=== PATIENT | female | born 1970 | race Two or more races ===

== ENCOUNTER 2025-04-03 21:29 | Emergency (ER) | payer OTHER ==
[~2025-04-03] VITALS: Ht 154.9 cm; Wt 63.0 kg
--- NOTE | 2025-04-03 21:52 | ED.PDOC ---
SOB-HPI HPI Comments 55 year old female with a Hx of Hyperlipidemia, and Covid-19was BIBA to the ED for the c/c of SOB w/ associated cough, and wheezing. EMS states pt was Dx with Covid-19 Last week and has since developed symptoms 2x days ago w/ no alleviating factors. EMS states that pt administered 6 puffs of her Albuterol treatment and noted of no alleviating factors. EMS notes they all administered an extra 2 albuterol treatments as well as 6L O2, and pt is noted to be SAT on 99% RA at this time. No other associated symptoms, modifiers, recent injuries or sick contacts present at this time. 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 History Family History Family History: Unobtainable Social History Smoker: Non-Smoker Alcohol: Denies ETOH Use Drugs: Denies Drug Use Lives In: Home Constitutional: denies: chills, diaphoresis, fatigue, fever, malaise, sweats, weakness, others EENTM: denies: blurred vision, double vision, ear bleeding, ear discharge, ear drainage, ear pain, ear ringing, eye pain, eye redness, hearing loss, mouth pain , mouth swelling, nasal discharge, nose bleeding, nose congestion, nose pain, photophobia, tearing, throat pain, throat swelling, voice changes, others Respiratory: reports: SOB at rest, shortness of breath; denies: cough, hemoptysis, orthopnea, SOB with excertion, stridor, wheezing, others Cardiovascular: denies: chest pain, dizzy spells, diaphoresis, Dyspnea on exertion, edema, irregular heart beat, left arm pain, lightheadedness, palpitations, PND, syncope, others Gastrointestinal: denies: abdomen distended, abdominal pain, blood streaked bowels, constipated, diarrhea, dysphagia, difficulty swallowing, hematemesis, melena, nausea, poor appetite, poor fluid intake, rectal bleeding, rectal pain, vomiting, others Genitourinary: denies: abnormal vagina bleeding, burning, dyspareunia, dysuria, flank pain, frequency, hematuria, incontinence, pain, , vagina discharge, urgency, others Neurological: denies: dizziness, fainting, headache, left sided numbness, left sided weakness, numbness, paresthesia, pre-existing deficit, right sided numbness, right sided weakness, seizure, speech problems, tingling, tremors, weakness, others Musculoskeletal: denies: back pain, gout, joint pain, joint swelling, muscle pain, muscle stiffness, neck pain, others Integumetry: denies: bruises, change in color, change in hair/nails, dryness, laceration, lesions, lumps, rash, wounds, others Allergic/Immunocompromised: denies: Difficulty Healing, Frequent Infections, Hives, Itching, others Hematologic/Lymphatic: denies: anemia, blood clots, easy bleeding, easy bruising, swollen glands, others Endocrine: denies: excessive hunger, excessive sweating, excessive thirst, excessive urination, flushing, intolerance to cold, intolerance to heat, unexplained weight gain, unexplained weight loss, others Psychiatric: denies: anxiety, bipolar disorder, depression, hopeless, panic disorder, schizophrenia, sleepless, suicidal, others All Other Systems: Reviewed and Negative Physical Exam General Appearance: Cachectic, Normal HEENT: Normal ENT Inspection, Pharynx Normal, TMs Normal Neck: Full Range of Motion, Non-Tender, Normal, Normal Inspection Respiratory: Chest Non-Tender, Lungs Clear, Normal Breath Sounds, Respiratory Distress, Wheezing Cardiovascular: No Edema, No JVD, No Murmur, No Gallop, Normal Peripheral Pulses, Regular Rate/Rhythm Breast Exam: Deferred Gastrointestinal: Non Tender, No Pulsatile Mass, Normal Bowel Sounds, Soft Genitalia: Deferred Pelvic: Deferred Rectal: Deferred Extremities: No calf tenderness, Normal capillary refill, Normal inspection, Normal range of motion, Non-tender, No pedal edema Musculoskeletal : Apperance: Normal Neurologic: Alert, No Motor Deficits, Normal Affect, Normal Mood, No Sensory Deficits Cerebellar Function: Normal Reflexes: Normal Skin: Dry, Normal Color, Warm Lymphatic: No Adenopathy Was a procedure done? Was a procedure done?: No Differential Dx Differential Diagnosis: Anxiety, Asthma, Bronchitis, COPD, Dysrhythmia, Hypertension, Panic Attack, Pneumonia, Pneumothorax, Pulmonary Embolism, Respiratory Distress, Sinusitis, Pharyngitis, URI X-Ray, Labs, Meds, VS Vital Signs Date Time Temp Pulse Resp B/P (MAP) Pulse Ox O2 Delivery O2 Flow Rate FiO2 04/04/25 03:14 92 15 96 Room Air* 0 21 04/04/25 03:14 98.4 92 15 121/64 (83) 96 98.4 04/04/25 01:25 102 16 100 04/04/25 01:17 96 Room Air 0.0 04/04/25 01:17 96 Room Air* 0 21 04/04/25 01:17 96 16 96 04/04/25 00:31 91 18 96 Room Air* 0 21 04/04/25 00:31 98.3 91 18 122/72 (89) 96 98.3 04/03/25 22:30 97.9 115 18 152/92 95 0.0 97.9 04/03/25 22:14 115 18 100 04/03/25 22:08 110 18 95 04/03/25 22:08 95 Room Air* 0 21 04/03/25 22:08 95 Room Air 0.0 04/03/25 21:39 135 04/03/25 21:29 97.9 120 22 152/92 99 97.9 Lab Test 04/03/25 23:06 04/03/25 21:54 04/03/25 09:55 Range/Units Troponin I High Sensitivity 7 8 </=34 ng/L White Blood Count 9.3 4.4-10.8 10^3/uL Red Blood Count 4.89 4.0-5.20 10^6/uL Hemoglobin 14.2 12.2-16.2 g/dL Hematocrit 42.4 36.0-46.0 % Mean Corpuscular Volume 86.7 80.0-100.0 fL Mean Corpuscular Hemoglobin 29.0 28.0-32.0 pg Mean Corpuscular Hemoglobin Concent 33.4 32.0-36.0 g/dL Red Cell Distribution Width 13.8 11.8-14.3 % Platelet Count 267 140-450 10^3/uL Mean Platelet Volume 9.5 6.9-10.8 fL Neutrophils (%) (Auto) 53.6 37.0-80.0 % Lymphocytes (%) (Auto) 28.1 10.0-50.0 % Monocytes (%) (Auto) 9.7 0.0-12.0 % Eosinophils (%) (Auto) 8.0 H 0.0-7.0 % Basophils (%) (Auto) 0.6 0.0-2.0 % Neutrophils # (Auto) 5.0 1.6-8.6 10 ^3/uL Lymphocytes # (Auto) 2.6 0.4-5.4 10 ^3/uL Monocytes # (Auto) 0.9 0-1.3 10 ^3/uL Eosinophils # (Auto) 0.7 0-0.8 10 ^3/uL Basophils # (Auto) 0.1 0-0.2 10 ^3/uL Nucleated Red Blood Cells 0.1 % Sodium Level 142 136-145 mmol/L Potassium Level 3.1 L 3.5-5.1 mmol/L Chloride Level 105 98-107 mmol/L Carbon Dioxide Level 25 20-31 mmol/L Anion Gap 12 5-15 Blood Urea Nitrogen 8 L 9-23 mg/dL Creatinine 0.78 0.550-1.02 mg/dL Glomerular Filtration Rate Calc 89 >90 mL/min BUN/Creatinine Ratio 10.3 10.0-20.0 Serum Glucose 185 H 74-106 mg/dL Calcium Level 10.2 8.7-10.4 mg/dL Magnesium Level 2.3 1.6-2.6 mg/dL Total Bilirubin 0.6 0.2-1.0 mg/dL Aspartate Amino Transferase (AST) 22 13-40 U/L Alanine Aminotransferase (ALT) 33 7-40 U/L Alkaline Phosphatase 126 H 46-116 U/L B-Type Natriuretic Peptide 2.81 0-100 pg/mL Total Protein 7.5 5.7-8.2 g/dL Albumin 5.0 H 3.2-4.8 g/dL Blood Gas Specimen Type Venous Blood Gas Sample Site Vbg - n/a Blood Gas Patient Temperature 37.0 Arterial Blood Date Drawn [id number] Pb Test N/a Venous Blood pH 7.416 7.320-7.430 Venous Blood pCO2 at Patient Temp 38.1 38.0-54.0 mmHg Venous Blood pO2 at Patient Temp 43.8 23.0-48.0 mmHg Venous Blood HCO3 23.9 22.0-29.0 mmol/L Venous Bld O2 Saturation (Measured) 80.5 60.0-85.0 % Venous Blood Base Excess -0.3 -2.0-3.0 mmol/L Venous Blood Total Hemoglobin 14.8 12.0-16.0 g/dL Venous Blood Oxyhemoglobin 79.4 H 0.0-79.0 % Venous Blood Carboxyhemoglobin 0.6 0.5-1.5 % Venous Blood Methemoglobin 0.8 0.0-1.5 % Blood Gas Modality Room air FiO2 % 21.0 Current Medications Medications (Trade) Dose Ordered Sig/Genoveva Route Start Time Stop Time Status Last Admin Prednisone 40 mg ONCE ONCE PO 04/03/25 21:45 04/03/25 21:46 DC 04/04/25 00:31 Potassium Chloride (Klor-Con Tablet) 40 meq ONCE ONCE PO 04/03/25 22:45 04/03/25 22:46 DC 04/04/25 00:31 Magnesium Sulfate/ Dextrose 100 ml @ 100 mls/hr Q1H IV 04/04/25 01:00 04/04/25 02:59 DC 04/04/25 04:31 Albuterol (Ventolin Medneb) 5 mg ONCE ONCE NEB 04/04/25 01:00 04/04/25 01:01 DC 04/04/25 01:17 Ipratropium [place] (Atrovent Medneb) 0.5 mg ONCE ONCE NEB 04/04/25 01:00 04/04/25 01:01 DC 04/04/25 01:17 PATIENT: BART BONILLA ACCT: [id number] UNIT: [id number] : 1970 LOC: ER ROOM / BED: / AGE / SEX: 55 / F ADM STATUS: REG ER SERVICE 39 ORDERING PHYSICIAN: NICOLAS ALCANTAR MD PROCEDURE(s): CXRP - CHEST PORTABLE REASON: SOB ORDER NUMBER(s): [id number], ACCESSION NUMBER(s): [id number] CHEST RADIOGRAPH Indication: SOB Technique: Single frontal view of the chest was obtained COMPARISON: None FINDINGS: Lines and Tubes: None. Bilateral breast prostheses. Lungs: Clear Pleura: No effusion. No pneumothorax. Cardiomediastinal contours: Unremarkable Bones: Unremarkable IMPRESSION: 1. No acute disease. Time of 1ST Reevaluation: 22:17 Reevaluation 1ST: Unchanged Patient Education/Counseling: Diagnosis, Treatment, Need For Follow Up Family Education/Counseling: No Family Present SEPSIS Sepsis Screen Date sepsis recognized/suspect: Apr 03, 2025 Time Sepsis recognized/suspect: 2128 Recent Procedure: No On Antibiotic Therapy: No Respiratory Rate >20: No Heart Rate >90: No Temp<36 C (96.8 F) or >38.3 C: No SBP <90 or MAP <65 mmHG: No New Acute Mental Status Change: No Is the patient on CPAP, BIPAP,: No Physician Orders Electrocardigram (04/03/25 21:40) Electrocardigram (04/04/25 00:40) Chest Portable (04/03/25 21:40) Venous Blood Gas (04/03/25 21:40) Levalbuterol Hcl (Xopenex Medneb) (04/04/25 00:00) Vital Signs Date Time Temp Pulse Resp B/P (MAP) Pulse Ox O2 Delivery O2 Flow Rate FiO2 04/04/25 03:14 92 15 96 Room Air* 0 04/04/25 03:14 98.4 92 15 121/64 (83) 96 98.4 04/04/25 01:25 102 16 100 04/04/25 01:17 96 Room Air 0.0 04/04/25 01:17 96 Room Air* 0 04/04/25 01:17 96 16 96 04/04/25 00:31 91 18 96 Room Air* 0 04/04/25 00:31 98.3 91 18 122/72 (89) 96 98.3 04/03/25 22:30 97.9 115 18 152/92 95 0.0 97.9 04/03/25 22:14 115 18 100 04/03/25 22:08 110 18 95 04/03/25 22:08 95 Room Air* 0 21 04/03/25 22:08 95 Room Air 0.0 04/03/25 21:39 135 04/03/25 21:29 97.9 120 22 152/92 99 97.9 Laboratory Tests Test 04/03/25 21:54 White Blood Count 9.3 10^3/uL (4.4-10.8) Medications Medications Dose Ordered Sig/Genoveva Route Start Time Stop Time Status Last Admin Dose Admin Albuterol 5 mg ONCE ONCE NEB 04/04/25 01:00 04/04/25 01:01 DC 04/04/25 01:17 Ipratropium [place] 0.5 mg ONCE ONCE NEB 04/04/25 01:00 04/04/25 01:01 DC 04/04/25 01:17 Levalbuterol HCl 1.25 mg STK-MED ONCE .ROUTE 04/03/25 22:03 04/03/25 22:01 DC 04/03/25 22:07 Magnesium Sulfate/ Dextrose 100 ml @ 100 mls/hr Q1H IV 04/04/25 01:00 04/04/25 02:59 DC 04/04/25 04:31 Potassium Chloride 40 meq ONCE ONCE PO 04/03/25 22:45 04/03/25 22:46 DC 04/04/25 00:31 Prednisone 40 mg ONCE ONCE PO 04/03/25 21:45 04/03/25 21:46 DC 04/04/25 00:31 Departure 1 Departure Time of Disposition: 01:00 Impression: Primary Impression: Bronchospasm Additional Impression: URI (upper respiratory infection) Disposition: 01 HOME / SELF CARE / HOMELESS Condition: Stable e-Prescriptions Prednisone (Prednisone) 20 Mg Tab 20 MG PO BID for 5 Days, #10 TAB Prov: NICOLAS ALCANTAR MD 04/03/25 Albuterol Sulfate (Albuterol Sulfate Hfa) 108 Mcg/Act Aer 108 MCG IN Q6HP PRN, #1 AER Prov: NICOLAS ALCANTAR MD 04/03/25 Azithromycin (Azithromycin) 500 Mg Tab 1 TAB PO DAILY for 5 Days, #5 TAB Prov: NICOLAS ALCANTAR MD 04/03/25 Discharged With: Self Critical Care Note Critical Care Time?: No Stability Stability form required: No Heart Score Heart Score: Heart Score Response (Comments) Value History N/A 0 EKG N/A 0 Age N/A 0 Risk Factors N/A 0 Troponin N/A 0 Total 0 I personally scribed for NICOLAS ALCANTAR MD ([email or web address]) on 04/03/25 at 21:52. Electronically submitted by Rashid Gillespie ([email or web address]). I personally scribed for NICOLAS ALCANTAR MD ([email or web address]) on 04/03/25 at 22:34. Electronically submitted by Rashid Gillespie ([email or web address]). NICOLAS ALCANTAR MD Apr 03, 2025 21:52
[2025-04-03] MEDS: LEVALBUTEROL HCL 1.25 MG/3 ML NEB ONE (22:07)
[2025-04-03 22:08] VITALS: PULSE 110; RESP 18; O2SAT 95
[2025-04-03 22:11] LABS: Hematocrit 42.4 % (36.0-46.0); Hemoglobin 14.2 g/dL (12.2-16.2); Mean Corpuscular Hemoglobin 29.0 pg (28.0-32.0); Mean Corpuscular Volume 86.7 fL (80.0-100.0); Nucleated Red Blood Cells % 0.1 %
[2025-04-03 22:14] VITALS: PULSE 115; RESP 18; O2SAT 100
--- NOTE | 2025-04-03 22:20 | DVH ---
CHEST RADIOGRAPH Indication: SOB Technique: Single frontal view of the chest was obtained COMPARISON: None FINDINGS: Lines and Tubes: None. Bilateral breast prostheses. Lungs: Clear Pleura: No effusion. No pneumothorax. Cardiomediastinal contours: Unremarkable Bones: Unremarkable IMPRESSION: 1. No acute disease.
[2025-04-03 22:25] LABS: Alanine Aminotransferase 33 U/L (7-40); Anion Gap 12 (5-15); BUN/Creatinine Ratio 10.3 (10.0-20.0); Calcium 10.2 mg/dL (8.7-10.4); Carbon Dioxide 25 mmol/L (20-31); Chloride 105 mmol/L (98-107); Magnesium 2.3 mg/dL (1.6-2.6); Sodium 142 mmol/L (136-145); Total Protein 7.5 g/dL (5.7-8.2)
[2025-04-03 22:26] LABS: Bilirubin, Total 0.6 mg/dL (0.2-1.0)
[2025-04-03 22:30] VITALS: BP 152/92; PULSE 115; RESP 18; TEMP 97.9; O2SAT 95
[2025-04-03 22:35] LABS: Albumin 5.0 g/dL (3.2-4.8); Alkaline Phosphatase 126 U/L (46-116); Blood Urea Nitrogen 8 mg/dL (9-23); Glucose 185 mg/dL (74-106); Potassium 3.1 mmol/L (3.5-5.1)
[2025-04-03] MEDS ORDERED: PRED20TA2 PO (22:58)
[2025-04-03] MEDS ORDERED: AZIT500T66 PO (22:58)
[2025-04-03] MEDS ORDERED: ALBU108A5 IN (22:58)
[2025-04-04 00:31] VITALS: PULSE 91; RESP 18; O2SAT 96
[2025-04-04] MEDS: predniSONE 20 MG TAB PO ONE (00:31)
[2025-04-04] MEDS: POTASSIUM CHL 20 Meq TABLET PO ONE (00:31)
[2025-04-04] MEDS: SODIUM CHLORIDE 0.9% 1,000 ML IV ONE (00:31)
[2025-04-04] MEDS: LEVALBUTEROL HCL 1.25 MG/3 ML NEB NEB SCH (00:34)
[2025-04-04 01:17] VITALS: PULSE 96; RESP 16; O2SAT 96
[2025-04-04] MEDS: IPRATROPIUM BROM 0.5 MG/2.5ML INH SOL NEB ONE (01:17)
[2025-04-04] MEDS: ALBUTEROL SULF 2.5 MG/0.5ML(0.5%) NEB SOLN NEB ONE (01:17)
[2025-04-04 01:25] VITALS: PULSE 102; RESP 16; O2SAT 100
[2025-04-04 03:14] VITALS: BP 121/64; PULSE 92; RESP 15; TEMP 98.4; O2SAT 96
[2025-04-04] MEDS: MAGNESIUM SULFATE 1GM/100ML 100 ML IV SCH (03:33)
[2025-04-04 05:54] VITALS: PULSE 109; RESP 22; O2SAT 96
[2025-04-04 06:01] VITALS: PULSE 117; RESP 22; O2SAT 100
--- NOTE | 2025-04-07 08:30 | ECG ---
[facility] Test Date: 2025-04-03 Test Time: 21:39:23 Pat Name: BART BONILLA Department: ED Room: Gender: F Reading Coach: LARA : 1970 Requested By: NICOLAS ALCANTAR Order Number: [id number] Reading MD: Faustino Jordan Measurements Intervals [place] Rate: 135 P: 39 MI: 134 QRS: 45 QRSD: 82 T: 32 QT: 299 QTc: 449 Interpretive Statements Sinus tachycardia Multiform ventricular premature complexes Aberrant conduction of SV complex(es) Electronically Signed On 04-07-2025 22:00:04 PDT by Faustino Jordan Please click the below link to view image of tracing.
== END 2025-04-04 06:15 | disposition home or self-care (01) ==
LOC: ER 21:29 → EDBD 21:29 → ER 04-04 06:15
DX: J06.9 Acute upper respiratory infection, unspecified (principal); J98.01 Acute bronchospasm; E78.5 Hyperlipidemia, unspecified; Z90.710 Acquired absence of both cervix and uterus
CPT/HCPCS: 36415; 36600; 71045; 80053; 82805; 83735; 83880; 84484; 85025; 93005; 94640; 96365; 96366; 99285; J3475; J7512